=== PATIENT | male | born 1990 | race African-American/Black ===

== ENCOUNTER 2020-09-28 07:06 | Emergency (ER) | payer MEDICAID ==
[~2020-09-28] VITALS: Ht 182.9 cm; Wt 74.4 kg
[2020-09-28 07:50] VITALS: BP 125/66
[2020-09-28] MEDS ORDERED: methylPREDNISolone SOD SUCC 125 MG/2 ML VL IM ONE (08:00)
== END 2020-09-28 08:10 | disposition home or self-care (01) ==
LOC: ER 07:06
DX: L25.9 Unspecified contact dermatitis, unspecified cause (principal)
CPT/HCPCS: 96372; 99283; J2930